=== PATIENT | male | born 1975 | race Caucasian/White ===

== ENCOUNTER 2022-03-19 09:12 | Emergency (ER) | payer OTHER ==
[2022-03-19] MEDS ORDERED: CLONIDINE 0.1 MG TABLET PO ONE (09:46)
[2022-03-19] MEDS ORDERED: NORVASC 5 MG PO ONE (09:47)
[2022-03-19] MEDS ORDERED: CLONIDINE 0.1 MG TABLET ONE (09:51)
[2022-03-19] MEDS ORDERED: NORVASC 5 MG ONE (09:51)
[2022-03-19] MEDS ORDERED: SUBLIMAZE 100 MCG/2 ML ONE (09:51)
[2022-03-19] MEDS: SUBLIMAZE 100 MCG/2 ML IV ONE ×2 (09:55→17:06)
[2022-03-19 09:58] LABS: Absolute Neutrophil Ct (ANC) 3.25 x10^3/uL (1.4-6.9); Basophil (Absolute #) 0.02 x10^3/uL (0-0.4); Eosinophil % 3.4 % (0.00-5.0); Eosinophil (Absolute #) 0.19 x10^3/uL (0-0.5); Hematocrit 46.1 % (42-50); Hemoglobin 15.4 g/dL (12.5-18.0); Lymphocytes % 28.8 % (24.0-44.0); Mean Corpuscular Hemoglobin 29.7 pg (26-32); Mean Corpuscular Hgb Concent. 33.4 g/dL (32-36); Mean Platelet Volume 11.4 fL (7.5-11.0); Monocyte (Absolute #) 0.48 x10^3/uL (0.0-1.3); Monocytes % 8.6 % (0.0-12.0); Neutrophil % 58.4 % (36.0-66.0); Platelet Count 171 x10^3/uL (150-450); Red Blood Count 5.18 x10^6/uL (4.1-5.6); Red Cell Distribution Width 13.1 % (11.5-14.0); White Blood Count 5.6 x10^3/uL (4.0-10.5)
[2022-03-19 10:04] LABS: Appearance CLEAR (CLEAR); Bilirubin NEGATIVE (NEGATIVE); Glucose >=1000 mg/dL (NEGATIVE); Ketones NEGATIVE (NEGATIVE); Protein,Urine Dip NEGATIVE (Negative); RBC NEGATIVE Ery/ul (0-5)
[2022-03-19 10:05] LABS: Dipstick done @ ? MAIN LAB; Nitrite NEGATIVE (NEGATIVE); Urobilinogen 0.2 mg/dL (0-1)
[2022-03-19 10:10] LABS: ALBUMIN 4.3 g/dL (3.5-5.0); ALKALINE PHOSPHATASE 104 U/L (38-126); ANION GAP 15.1 MEQ/L (5-15); BLOOD UREA NITROGEN 17 mg/dL (9-20); CHLORIDE 101 mmol/L (98-107); Calcium 8.9 mg/dL (8.4-10.2); Carbon Dioxide 22 mmol/L (22-30); Creatinine 1 0.73 mg/dL (0.66-1.25); EST GLOMERULAR FILTRATION RATE > 60.0 ML/MIN; Glucose 270 mg/dL (74-106); Potassium 4.8 mmol/L (3.5-5.1); SGOT/AST 33 U/L (17-59); SGPT/ALT 30 U/L (0-50); SODIUM 134 mmol/L (137-145); Total Protein 7.7 g/dL (6.3-8.2)
[2022-03-19 10:17] LABS: Mucus SLIGHT /HPF (NEGATIVE); RBC 0-2 /HPF (0-2)
[2022-03-19 10:20] LABS: Urine Cultured Indicated? NO
--- NOTE | 2022-03-19 10:32 | ERPHSYRPT ---
- History of Present Illness Time Seen by Provider: 03/19/22 09:30 Source: patient Exam Limitations: no limitations Patient Subjective Stated Complaint: Hypertension Triage Nursing Assessment: Patient ambulated back to ED and transferred self to bed. Patient A+O X 3. Patient's skin pink, warm and dry. Patient complains of not feeling well for the past two days. Patient complains of occasional headache, dizziness and seeing spots. Patient took his blood pressure yesterday and today and the readings were high. Patient currently denies pain or d iscomfort. Physician History: Patient is a 46-year-old male who presents with a complaint of episodes of dizziness and headache and floaters in his vision. The headache has been on and off for 3 days and is sharp at times. He was previously treated until a year ago with lisinopril for high blood pressure but he did went on a keto diet and lost weight and for some time his blood pressures have been fairly normal. Last night he had blood pressures in the range of 1 66-1 78 systolic and 100-1 19 diastolic. 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 Timing/Duration: day(s) (3) Quality: sharpness, stabbing Head Pain Location: frontal Severity of Pain-Max: severe Severity of Pain-Current: none Recent Head Trauma: no recent headache/trauma Associated Symptoms: dizziness, light-headedness, vision changes (Increased floaters) Previous symptoms: no prior history Allergies/Adverse Reactions: No Known Drug Allergies Allergy (Verified 03/19/22 09:20) Hx Tetanus, Diphtheria Vaccination/Date Given: Yes Hx Influenza Vaccination/Date Given: No Hx Pneumococcal Vaccination/Date Given: No Immunizations Up to Date: Yes Travel Risk - International Travel Have you traveled outside of the country in past 3 weeks: No - Coronavirus Screening Are you exhibiting any of the following symptoms?: No Close contact with a COVID-19 positive Pt in past 14-21 Days: No - Vaccine Status Have you recieved a Covid-19 vaccination: Yes Contact Center Team Lead: Moderna - Vaccination Dates Date of 2cond Vaccination (if applicable): na - Review of Systems Constitutional: No Fever, No Chills Eyes: Vision Changes (Increased floaters intermittently) Ears, Nose, & Throat: No Symptoms Respiratory: No Cough, No Dyspnea Cardiac: No Chest Pain, No Edema, No Syncope Abdominal/Gastrointestinal: No Abdominal Pain, No Nausea, No Vomiting, No Diarrhea Genitourinary Symptoms: No Dysuria Musculoskeletal: No Back Pain, No Neck Pain Skin: No Rash Neurological: Headache, No Dizziness, No Focal Weakness, No Sensory Changes Psychological: No Symptoms Endocrine: No Symptoms All Other Systems: Reviewed and Negative - Past Medical History Pertinent Past Medical History: Yes Neurological History: No Pertinent History ENT History: No Pertinent History Cardiac History: No Pertinent History Respiratory History: No Pertinent History Endocrine Medical History: No Pertinent History Musculoskeletal History: No Pertinent History GI Medical History: No Pertinent History History: No Pertinent History Psycho-Social History: No Pertinent History Male Reproductive Disorders: No Pertinent History Other Medical History: states january 2013 in hospital for cellulitis - Past Surgical History Past Surgical History: Yes Neuro Surgical History: No Pertinent History Cardiac: No Pertinent History Respiratory: No Pertinent History Gastrointestinal: No Pertinent History Genitourinary: No Pertinent History Musculoskeletal: Amputation Male Surgical History: No Pertinent History Other Surgical History: 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 - Social History Smoking Status: Never smoker Exposure to second hand smoke: No Drug Use: none Patient Lives Alone: No - Nursing Vital Signs Nursing Vital Signs: Initial Vital Signs Temperature 97.2 F 03/19/22 09:21 Pulse Rate 77 03/19/22 09:21 Respiratory Rate 18 03/19/22 09:21 Blood Pressure 143/96 03/19/22 09:21 O2 Sat by Pulse Oximetry 98 03/19/22 09:21 Pain Scale Pain Intensity 0 - Physical Exam General Appearance: no apparent distress Eye Exam: PERRL/EOMI, eyes nml inspection, other (Funduscopic exam is negative) Ears, Nose, Throat Exam: normal ENT inspection, moist mucous membranes Neck Exam: normal inspection, supple, full range of motion, No meningismus Respiratory Exam: normal breath sounds, lungs clear Cardiovascular Exam: regular rate/rhythm, normal heart sounds Gastrointestinal/Abdominal Exam: soft, No tenderness, No distention Back Exam: normal inspection, normal range of motion Mental Status Exam: alert, oriented x 3, 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 Exam: normal speech, PERRL, No facial droop Coordination/Gait Exam: normal cerebellar function Motor/Sensory Exam: no motor deficit, no sensory deficit Skin Exam: normal color, warm, dry, No rash SpO2 Interpretation: normal SpO2: 98 O2 Delivery: Room Air - Course EKG Interpreted by Me: RATE (68), Sinus Rhythm, NORMAL AXIS, NORMAL INTERVALS, NORMAL QRS, NORMAL ST-T - Radiology Exams Chest X-ray Interpretation: Negative - CT Exams Head CT Interpretation: Negative Ordered Tests: Active Orders 24 hr Category Date Time Status EKG-ER Only STAT Care 03/19/22 09:46 Active IV Insertion STAT Care 03/19/22 09:44 Active CHEST 1 VIEW (PORTABLE) Stat Exams 03/19/22 10:49 Completed HEAD WITHOUT CONTRAST [CT] Stat Exams 03/19/22 09:44 Completed CBC W DIFF Stat Lab 03/19/22 09:40 Completed CMP Stat Lab 03/19/22 09:40 Completed UA W/RFX CULTURE Stat Lab 03/19/22 09:50 Completed Medication Summary Discontinued Medications Generic Name Dose Route Start Last Admin Trade Name Freq PRN Reason Stop Dose Admin Amlodipine Besylate 5 mg 03/19/22 09:47 03/19/22 09:53 Amlodipine Besylate 5 Mg Tablet PO 03/19/22 09:48 5 mg STAT ONE Administration Amlodipine Besylate Confirm 03/19/22 09:51 Amlodipine Besylate 5 Mg Tablet Administered 03/19/22 09:52 Dose 5 mg .ROUTE .STK-MED ONE Clonidine 0.1 mg 03/19/22 09:46 03/19/22 09:54 Clonidine Hcl 0.1 Mg Tablet PO 03/19/22 09:47 0.1 mg STAT ONE Administration Clonidine Confirm 03/19/22 09:51 Clonidine Hcl 0.1 Mg Tablet Administered 03/19/22 09:52 Dose 0.1 mg .ROUTE .STK-MED ONE Fentanyl Citrate 50 mcg 03/19/22 09:44 03/19/22 09:55 Fentanyl Citrate 100 Mcg/2 Ml* Vial IV 03/19/22 09:45 50 mcg STAT ONE Administration Fentanyl Citrate Confirm 03/19/22 09:51 Fentanyl Citrate 100 Mcg/2 Ml* Vial Administered 03/19/22 09:52 Dose 100 mcg .ROUTE .STK-MED ONE Lab/Rad Data: Laboratory Result Diagrams 03/19/22 09:40 03/19/22 09:40 Laboratory Results 08/05/22 08/05/22 08/05/22 Range/Units 09:50 09:40 09:40 WBC 5.6 (4.0-10.5) x10^3/uL RBC 5.18 (4.1-5.6) x10^6/uL Hgb 15.4 (12.5-18.0) g/dL Hct 46.1 (42-50) % MCV 89.0 (78-100) fL MCH 29.7 (26-32) pg MCHC 33.4 (32-36) g/dL RDW 13.1 (11.5-14.0) % Plt Count 171 (150-450) x10^3/uL MPV 11.4 H (7.5-11.0) fL Gran % 58.4 (36.0-66.0) % Immature Gran % (Auto) 0.4 (0.00-0.4) % Nucleat RBC Rel Count 0.0 (0.00-0.1) % Eos # (Auto) 0.19 (0-0.5) x10^3/uL Immature Gran # (Auto) 0.02 (0.00-0.03) x10^3u/L Absolute Lymphs (auto) 1.60 (1.0-4.6) x10^3/uL Absolute Monos (auto) 0.48 (0.0-1.3) x10^3/uL Absolute Nucleated RBC 0.00 (0.00-0.01) x10^3u/L Lymphocytes % 28.8 (24.0-44.0) % Monocytes % 8.6 (0.0-12.0) % Eosinophils % 3.4 (0.00-5.0) % Basophils % 0.4 (0.0-0.4) % Absolute Granulocytes 3.25 (1.4-6.9) x10^3/uL Basophils # 0.02 (0-0.4) x10^3/uL Sodium 134 L (137-145) mmol/L Potassium 4.8 (3.5-5.1) mmol/L Chloride 101 (98-107) mmol/L Carbon Dioxide 22 (22-30) mmol/L Anion Gap 15.1 H (5-15) MEQ/L BUN 17 (9-20) mg/dL Creatinine 0.73 (0.66-1.25) mg/dL Estimated GFR > 60.0 ML/MIN Glucose 270 H (74-106) mg/dL Calcium 8.9 (8.4-10.2) mg/dL Total Bilirubin 1.00 (0.2-1.3) mg/dL AST 33 (17-59) U/L ALT 30 (0-50) U/L Alkaline Phosphatase 104 (38-126) U/L Serum Total Protein 7.7 (6.3-8.2) g/dL Albumin 4.3 (3.5-5.0) g/dL Urinalys Dipstick Clnc MAIN LAB Urine Color YELLOW (YELLOW) Urine Appearance CLEAR (CLEAR) Urine pH 5.0 (5-6) Ur Specific [place] 1.030 (1.005-1.025) POC Urine Protein Conf NEGATIVE (Negative) Urine Ketones NEGATIVE (NEGATIVE) Urine Nitrite NEGATIVE (NEGATIVE) Urine Bilirubin NEGATIVE (NEGATIVE) Urine Urobilinogen 0.2 (0-1) mg/dL Urine Leukocytes NEGATIVE (NEGATIVE) Urine WBC (Auto) NONE (0-5) /HPF Urine RBC (Auto) 0-2 (0-2) /HPF U Epithel Cells (Auto) NONE (FEW) /HPF Urine Bacteria (Auto) NONE (NEGATIVE) /HPF Urine RBC NEGATIVE (0-5) Bakari/ul Urine Mucus (Auto) SLIGHT (NEGATIVE) /HPF Ur Culture Indicated? NO Urine Glucose >=1000 (NEGATIVE) mg/dL - Progress Progress: improved Air Movement: good Blood Culture(s) Obtained: No Antibiotics given: No - Departure Departure Disposition: Home Clinical Impression: Hypertension, Diabetes mellitus, type II Condition: Stable Critical Care Time: No Referrals: JHONATAN LASSITER MD [Primary Care Provider] - Follow up/PCP as directed Instructions: Malignant Hypertension (DC), Type 2 Diabetes (DC) Prescriptions: Metformin HCl 500 mg [Glucophage 500 MG] 500 mg PO BID 30 Days #60 tablet Lisinopril 10 mg [Zestril 10 MG] 10 mg PO DAILY 30 Days #30 tablet
--- NOTE | 2022-03-19 11:30 | XRAY ---
Exam: AP upright portable chest film from 03/19/2022. Comparison: Upright PA chest film from 05/29/2019. Indication: Headache; dizziness 2-3 days; hypertension. Findings: The film was obtained in a mildly lordotic projection. The heart size appears within normal limits for this AP portable technique. The claude and mediastinal structures appear unremarkable. Lungs are well inflated and appear clear. Pulmonary vascularity is normal. No pneumothorax or pleural fluid is seen. Lateral osteophyte formation is seen within the lower thoracic spine. No acute osseous process is seen. Impression: 1. No acute cardiopulmonary disease is seen, no change from 05/29/2019.
--- NOTE | 2022-03-19 11:36 | XRAY ---
Exam: CT of the head without IV contrast from 03/19/2022. CTDI: 53.92 mGy Comparison: None. Indication: 46-year-old male with headache; dizziness for 2-3 days; hypertension. Technique: Noncontrast axial images are obtained through the brain. Reconstructed coronal and sagittal images were created and reviewed. Findings: The ventricles appear of normal size and configuration. No focal mass effect or midline shift is seen. Some artifactual streaking is seen within the mouth due to dental amalgam. No acute intracranial bleed or abnormal extra-axial fluid collection is seen. The sanchez matter-white matter interfaces appear normal. No low attenuation ischemic infarct is seen. The cortical sulci appear unremarkable. The paranasal sinuses are clear without air-fluid levels.. The mastoid air cells appear clear without effusion. The middle ear cavities appear grossly unremarkable. The orbits appear grossly unremarkable. There is some soft tissue density within the right external auditory canal which may represent cerumen. A minimal amount of soft tissue density is seen within the left external auditory canal as well, likely representing cerumen. The calvarium of the skull appears intact. Impression: 1. No acute intracranial bleed or other acute intracranial process is seen. 2. There is some soft tissue density seen within both external auditory canals, right greater than left. This likely represents cerumen. Correlate clinically.
[2022-03-19 12:08] VITALS: BP 109/85; PULSE 76; O2SAT 96
== END 2022-03-19 12:14 | disposition home or self-care (01) ==
LOC: ED 09:12
DX: I10 Essential (primary) hypertension (principal); E11.65 Type 2 diabetes mellitus with hyperglycemia; R51.9 Headache, unspecified; R42 Dizziness and giddiness; H53.8 Other visual disturbances
CPT/HCPCS: 36000; 36415; 70450; 71045; 80053; 81015; 85025; 93005; 96374; 96375; 99284; J3010; A9270-GY

== ENCOUNTER 2024-02-22 17:18 | Emergency (ER) | payer OTHER ==
[2024-02-22 17:38] VITALS: TEMP 97.2
[2024-02-22 18:26] LABS: Absolute Neutrophil Ct (ANC) 4.62 x10^3/uL (1.78-5.38); BASOPHIL % 0.3 % (0.2-1.2); Basophil (Absolute #) 0.02 x10^3/uL (0.01-0.08); Eosinophil % 2.8 % (0.8-7.0); Hematocrit 42.5 % (40.1-51.0); Hemoglobin 14.6 g/dL (13.7-17.5); IMMATURE GRAN # 0.02 x10^3u/L (0.001-0.031); IMMATURE GRAN % 0.3 % (0.001-0.429); Lymphocyte (Absolute #) 1.63 x10^3/uL (1.32-3.57); Lymphocytes % 23.2 % (21.8-53.1); Mean Cell Volume 87.6 fL (79.0-92.2); Mean Corpuscular Hemoglobin 30.1 pg (25.7-32.2); Mean Corpuscular Hgb Concent. 34.4 g/dL (32.3-36.5); Mean Platelet Volume 11.1 fL (9.4-12.4); Monocyte (Absolute #) 0.53 x10^3/uL (0.30-0.82); Monocytes % 7.5 % (5.3-12.2); Neutrophil % 65.9 % (34.0-67.9); Platelet Count 179 x10^3/uL (163-337); Red Blood Count 4.85 x10^6/uL (4.63-6.08); Red Cell Distribution Width 13.1 % (11.6-14.4)
[2024-02-22 18:42] LABS: ANION GAP 13.5 MEQ/L (5-15); Calcium 9.2 mg/dL (8.4-10.2); Creatinine 1 0.7 mg/dL (0.66-1.25); EST GLOMERULAR FILTRATION RATE 112.3 ML/MIN
--- NOTE | 2024-02-22 18:50 | ERPHSYRPT ---
- History of Present Illness Source: patient Exam Limitations: no limitations Patient Subjective Stated Complaint: pt here for pain to left groin area for 2 days now. no injury, he states he has hx of varicose veins issues.and had surgery Triage Nursing Assessment: pt alert, walked in with a limb, resp easy, skin w/d/p. has swelling to left groin area, states pain radiates at times down leg, no difficulty with bowel or bladder Hx Tetanus, Diphtheria Vaccination/Date Given: Yes Hx Influenza Vaccination/Date Given: No Hx Pneumococcal Vaccination/Date Given: No Immunizations Up to Date: Yes - History of Present Illness Time Seen by Provider: 02/22/24 17:36 Physician History: Patient here with left upper thigh pain. Patient has a history of varicose veins, some type of clotting in that area. He is unsure. She states that it has "needed to be stripped before". Approximately 2 days ago he developed sudden onset of pain in that area. No nausea or vomiting. No abdominal pain. No difficulty peeing, no testicle pain. Patient is taking PO well. Same number of urinations and defecations. The patient has no signs of altered mental status, nuchal rigidity, signs of meningitis. The patient is up-to-date on all vaccinations. (GARDENIA KELLEY) Allergies/Adverse Reactions: No Known Drug Allergies Allergy (Verified 02/22/24 17:35) Travel Risk - International Travel Have you traveled outside of the country in past 3 weeks: No - Emerging Infectious Disease Are you exhibiting symptoms associated with any current EIDs: No - Past Medical History Pertinent Past Medical History: Yes Neurological History: No Pertinent History ENT History: No Pertinent History Cardiac History: No Pertinent History Respiratory History: No Pertinent History Endocrine Medical History: No Pertinent History Musculoskeletal History: No Pertinent History GI Medical History: No Pertinent History History: No Pertinent History Psycho-Social History: No Pertinent History Male Reproductive Disorders: No Pertinent History Other Medical History: states january 2013 in hospital for cellulitis - Past Surgical History Past Surgical History: Yes Neuro Surgical History: No Pertinent History Cardiac: No Pertinent History Respiratory: No Pertinent History Gastrointestinal: No Pertinent History Genitourinary: No Pertinent History Musculoskeletal: Amputation Male Surgical History: No Pertinent History Other Surgical History: 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 veins left leg - Social History Smoking Status: Never smoker Exposure to second hand smoke: No Drug Use: none Patient Lives Alone: No - Social Determinants of Health Will the patient participate in the screening: Declined to provide - Physical Exam SpO2: 98 - Nursing Vital Signs Nursing Vital Signs: Initial Vital Signs Temperature 97.2 F 02/22/24 17:37 Pulse Rate 90 02/22/24 17:37 Respiratory Rate 18 02/22/24 17:37 Blood Pressure 139/98 02/22/24 17:37 O2 Sat by Pulse Oximetry 98 02/22/24 17:37 Pain Scale Pain Intensity 7 - Physical Exam Comments: 02/22/24 18:47 Review of Systems Constitutional: Negative for fever. HENT: Negative for congestion. Respiratory: Negative for shortness of breath. Cardiovascular: Negative for chest pain. Gastrointestinal: Negative for abdominal pain. Genitourinary: Negative for dysuria. Musculoskeletal: Negative for back pain. Skin: Negative for rash. Neurological: Negative for headaches. Psychiatric/Behavioral: Negative for behavioral problems. All other systems reviewed and are negative. Physical Exam Vitals signs and nursing note reviewed. Constitutional: Appearance: Patient is well-developed. HENT: Head: Normocephalic and atraumatic. Eyes: Conjunctiva/sclera: Conjunctivae normal. Neck: Musculoskeletal: Normal range of motion. Trachea: No tracheal deviation. Cardiovascular: Rate and Rhythm: Normal rate. Pulmonary: Effort: Pulmonary effort is normal. No respiratory distress. Abdominal: Palpations: Abdomen is soft. Musculoskeletal: General: No deformity. Left groin demonstrates varicose veins, swelling, tenderness. Bulging in that area. No obvious reducible hernia. No obvious deformity, sensation intact, 2+ capillary refill, 2 point tactile discrimination intact. 5 out of 5 strength. Full range of motion without pain. Compartments are soft, nontender. Overlying skin shows no tenting, bruising, ecchymosis. Skin: General: Skin is warm and dry. Neurological/ Psychiatric: Mental Status: Mental status, behavior, interaction with environment is appropriate for patient's age and condition Testicle exam with service representativeVahid. Testicles intact, no signs of bulge, no scrotal abscesses. Groin is intact without obvious hernia. Cremaster reflex intact. Patient is circumcised, no shaft issue. (GARDENIA KELLEY) - Course Nursing assessment & vital signs reviewed: Yes Ordered Tests: Active Orders 24 hr Category Date Time Status IV Insertion STAT Care 02/22/24 18:06 Active ABDOMEN AND PELVIS W CONTRAST [CT] Stat Exams 02/22/24 18:59 Completed BMP Stat Lab 02/22/24 18:15 Completed CBC W DIFF Stat Lab 02/22/24 18:15 Completed D-DIMER QUANTITATIVE Stat Lab 02/22/24 18:15 Completed UA W/RFX UR CULTURE Stat Lab 02/22/24 19:14 Completed Medication Summary Generic Name Dose Route Start Last Admin Trade Name Freq PRN Reason Stop Dose Admin Hydrocodone Bitart/Acetaminophen 4 tablet 02/22/24 23:45 Hydrocodone/Acetamin 10-325 Mg Tablet PO 02/27/24 23:44 Q4H PRN PRN PAIN Ceftriaxone Sodium 1 gm in 100 mls @ 200 mls/hr 02/22/24 23:37 02/22/24 23:40 Rocephin 1 Gm / 100 Ml Nacl IV 02/23/24 00:06 200 mls/hr STAT ONE 200 mls/hr Administration Discontinued Medications Generic Name Dose Route Start Last Admin Trade Name Freq PRN Reason Stop Dose Admin Hydrocodone Bitart/Acetaminophen 4 tab 02/22/24 23:39 Hydrocodone/Apap 5/325 1 Tab Tablet PO 02/27/24 23:38 Q4H PRN PRN PAIN Hydrocodone Bitart/Acetaminophen Confirm 02/22/24 23:45 Hydrocodone/Acetamin 10-325 Mg Tablet Administered 02/22/24 23:46 Dose 4 tablet .ROUTE .STK-MED ONE Hydromorphone HCl 1 mg 02/22/24 18:54 02/22/24 19:04 Hydromorphone 1 Mg/1ml Inj IV 02/22/24 18:55 1 mg STAT ONE Administration Hydromorphone HCl Confirm 02/22/24 18:59 Hydromorphone 1 Mg/1ml Inj Administered 02/22/24 19:00 Dose 1 mg .ROUTE .STK-MED ONE Hydromorphone HCl 0.5 mg 02/22/24 23:07 02/22/24 23:11 Hydromorphone 1 Mg/1ml Inj IV 02/22/24 23:08 0.5 mg STAT ONE Administration Hydromorphone HCl Confirm 02/22/24 23:10 Hydromorphone 1 Mg/1ml Inj Administered 02/22/24 23:11 Dose 1 mg .ROUTE .STK-MED ONE Ceftriaxone Sodium Confirm 02/22/24 23:40 Rocephin 1 Gm / 100 Ml Nacl Administered 02/22/24 23:41 Dose 1 gm in 100 mls @ ud IV .STK-MED ONE Ketorolac Tromethamine 30 mg 02/22/24 18:54 02/22/24 19:01 Ketorolac Tromethamine 30 Mg/Ml Inj IV 02/22/24 18:55 30 mg STAT ONE Administration Ketorolac Tromethamine Confirm 02/22/24 18:58 Ketorolac Tromethamine 30 Mg/Ml Inj Administered 02/22/24 18:59 Dose 30 mg .ROUTE .STK-MED ONE Ondansetron HCl 4 mg 02/22/24 18:54 02/22/24 19:00 Ondansetron Hcl 4 Mg/2 Ml Vial IV 02/22/24 18:55 4 mg STAT ONE Administration Ondansetron HCl Confirm 02/22/24 18:58 Ondansetron Hcl 4 Mg/2 Ml Vial Administered 02/22/24 18:59 Dose 4 mg .ROUTE .STK-MED ONE Lab/Rad Data: Laboratory Result Diagrams 02/22/24 18:15 02/22/24 18:15 Laboratory Results 02/22/24 02/22/24 02/22/24 Range/Units 19:14 18:15 18:15 WBC (4.23-9.07) x10^3/uL RBC (4.63-6.08) x10^6/uL Hgb (13.7-17.5) g/dL Hct (40.1-51.0) % MCV (79.0-92.2) fL MCH (25.7-32.2) pg MCHC (32.3-36.5) g/dL RDW (11.6-14.4) % Plt Count (163-337) x10^3/uL MPV (9.4-12.4) fL Gran % (34.0-67.9) % Immature Gran % (Auto) (0.001-0.429) % Nucleat RBC Rel Count (0.00-0.2) % Eos # (Auto) (0.04-0.54) x10^3/uL Immature Gran # (Auto) (0.001-0.031) x10^3u/L Absolute Lymphs (auto) (1.32-3.57) x10^3/uL Absolute Monos (auto) (0.30-0.82) x10^3/uL Absolute Nucleated RBC (0.00-0.012) x10^3u/L Lymphocytes % (21.8-53.1) % Monocytes % (5.3-12.2) % Eosinophils % (0.8-7.0) % Basophils % (0.2-1.2) % Absolute Granulocytes (1.78-5.38) x10^3/uL Basophils # (0.01-0.08) x10^3/uL D-Dimer 0.22 (0.0-0.50) mg/L Sodium 137 (135-145) mmol/L Potassium 4.0 (3.5-5.1) mmol/L Chloride 101 (98-107) mmol/L Carbon Dioxide 26 (22-30) mmol/L Anion Gap 13.5 (5-15) MEQ/L BUN 16 (9-20) mg/dL Creatinine 0.70 (0.66-1.25) mg/dL Estimated GFR 112.3 ML/MIN Glucose 204 H (74-106) mg/dL Calcium 9.2 (8.4-10.2) mg/dL Urine Color Yellow (Yellow) Urine Appearance Clear (Clear) Urine pH 5.5 (4.6-8.0) Ur Specific [place] >=1.030 A (1.005-1.030) Urine Protein Negative (Negative) Urine Glucose (UA) >=1000 A (Negative) mg/dL Urine Ketones Trace A (Negative) Urine Blood Negative (Negative) Urine Nitrite Negative (Negative) Urine Bilirubin Negative (Negative) Urine Urobilinogen 0.2 (0.2) mg/dL Ur Leukocyte Esterase Negative (Negative) U Hyaline Cast (Auto) NONE SEEN (0-2) /LPF Urine Microscopic RBC 0-2 (0-5) /HPF Urine Microscopic WBC 0-2 (0-5) /HPF Ur Epithelial Cells None Seen (None Seen) /HPF Urine Bacteria None Seen (None Seen) /HPF Urine Culture Reflexed NO (NO) 02/22/24 Range/Units 18:15 WBC 7.0 (4.23-9.07) x10^3/uL RBC 4.85 (4.63-6.08) x10^6/uL Hgb 14.6 (13.7-17.5) g/dL Hct 42.5 (40.1-51.0) % MCV 87.6 (79.0-92.2) fL MCH 30.1 (25.7-32.2) pg MCHC 34.4 (32.3-36.5) g/dL RDW 13.1 (11.6-14.4) % Plt Count 179 (163-337) x10^3/uL MPV 11.1 (9.4-12.4) fL Gran % 65.9 (34.0-67.9) % Immature Gran % (Auto) 0.3 (0.001-0.429) % Nucleat RBC Rel Count 0.0 (0.00-0.2) % Eos # (Auto) 0.20 (0.04-0.54) x10^3/uL Immature Gran # (Auto) 0.02 (0.001-0.031) x10^3u/L Absolute Lymphs (auto) 1.63 (1.32-3.57) x10^3/uL Absolute Monos (auto) 0.53 (0.30-0.82) x10^3/uL Absolute Nucleated RBC 0.00 (0.00-0.012) x10^3u/L Lymphocytes % 23.2 (21.8-53.1) % Monocytes % 7.5 (5.3-12.2) % Eosinophils % 2.8 (0.8-7.0) % Basophils % 0.3 (0.2-1.2) % Absolute Granulocytes 4.62 (1.78-5.38) x10^3/uL Basophils # 0.02 (0.01-0.08) x10^3/uL D-Dimer (0.0-0.50) mg/L Sodium (135-145) mmol/L Potassium (3.5-5.1) mmol/L Chloride (98-107) mmol/L Carbon Dioxide (22-30) mmol/L Anion Gap (5-15) MEQ/L BUN (9-20) mg/dL Creatinine (0.66-1.25) mg/dL Estimated GFR ML/MIN Glucose (74-106) mg/dL Calcium (8.4-10.2) mg/dL Urine Color (Yellow) Urine Appearance (Clear) Urine pH (4.6-8.0) Ur Specific [place] (1.005-1.030) Urine Protein (Negative) Urine Glucose (UA) (Negative) mg/dL Urine Ketones (Negative) Urine Blood (Negative) Urine Nitrite (Negative) Urine Bilirubin (Negative) Urine Urobilinogen (0.2) mg/dL Ur Leukocyte Esterase (Negative) U Hyaline Cast (Auto) (0-2) /LPF Urine Microscopic RBC (0-5) /HPF Urine Microscopic WBC (0-5) /HPF Ur Epithelial Cells (None Seen) /HPF Urine Bacteria (None Seen) /HPF Urine Culture Reflexed (NO) - Progress Progress: improved Counseled pt/family regarding: lab results, diagnosis, need for follow-up - Progress Progress Note: 02/22/24 18:49 Differential diagnosis includes blood clot, varicose veins, hernia, deep space infection, UTI. Plan for IV, basic labs, D-dimer, UA. If D-dimer returns positive we will obtain an ultrasound of that area. Handoff of care to Dr. Reis at 7 PM. He will follow-up on all labs and images. Disposition per reexam, labs, imaging. (GARDENIA KELLEY) Patient endorsed to Dr. Reis at approximately 7 PM. However D-dimer resulted as negative prior to my shift. CT scan ordered per Dr. Kelley. CT scan reveals diverticulosis a left varicocele left inguinal lymphadenopathy and splenomegaly. Patient requires ultrasound to further evaluate left inguinal lymphadenopathy and varicocele. Ultrasound ordered. Ultrasound will be done on Tuesday. Results to be sent to Dr. Dwyer. Additionally workup reveals glucosuria and hyperglycemia. Patient likely developing early diabetes. On further exam we observed that patient has a excoriated area on his left medial thigh adjacent to the area of the inguinal lymphadenopathy. There appears to be early cellulitis. Patient received a dose of Rocephin. A prescription for Keflex forwarded to patient's pharmacy. Additionally patient was discharged home with 4 pills of Pinewood 10. We attempted to send a prescription for Pinewood to patient's pharmacy however there are technical difficulties at this time that are precluding us from forwarding a Pinewood prescription. Plan of care discussed with patient. He agrees to have his ultrasound done this coming Tuesday as planned. He will follow-up with Dr. Dwyer as well. Patient will take his antibiotics and pain medication as prescribed. at bedside. They voiced no other complaints or concerns at this time. Portions of this note were created with voice recognition technology. There may be grammatical, spelling, punctuation or sound alike errors Complexity problem addressed is moderate acute complicated. No critical care time. Complex of data reviewed and analyzed is extensive. Test ordered test reviewed results analyzed and correlated clinically with history and physical exam. Risk of complication and or risk of morbidity/mortality patient management is moderate. A prescription for Keflex forwarded to patient's pharmacy. Patient received Dilaudid for pain control in our ED. Vital stable. Time spent to discharge patient approximately 20 minutes. Plan of care estab lished for shared decision making. No social determinants of health present impede follow-up. Portions of this note were created with voice recognition technology. There may be grammatical, spelling, punctuation or sound alike errors 02/22/24 23:48 (JANE REIS) - Departure Critical Care Time: No - Departure Clinical Impression: Left leg pain, Hyperglycemia, Glucosuria, Inguinal lymphadenopathy, Left varicocele, Splenomegaly, Inguinal pain, Cellulitis Condition: Stable Referrals: JHONATAN DWYER MD [Primary Care Provider] - Follow up/PCP as directed Additional Instructions: Discharge/Care Plan JIESHERRIE CHANDLER was seen on 02/22/24 in the Emergency Room. The patient w as counseled regarding Diagnosis,Lab results, Imaging studies, need for follow up and when to return to the Emergency Room. Prescriptions given: Discharge Note I have spoken with the patient and/or caregivers. I have explained the patient's condition, diagnosis and treatment plan based on the information available to me at this time. I have answered the patient's and/or caregiver's questions and addressed any concerns. The patient and/or caregivers have as good understanding of the patient's diagnosis, condition and treatment plan as can be expected at this point. The vital signs have been stable. The patient's condition is stable and appropriate for discharge from the emergency department. The patient will pursue further outpatient evaluation with the primary care physician or other designated or consulting physician as outlined in the discharge instructions. The patient and/or caregivers are agreeable to this plan of care and follow-up instructions have been explained in detail. The patient and/or caregivers have received these instruction. The patient/and or caregivers are aware that any significant change in condition or worsening of symptoms should prompt an immediate return to this or the closest emergency department or call 911. Prescriptions: Hydrocodone/APAP 5/325 [[place] 5/325 mg] 1 each PO Q6H PRN PRN #10 tablet MDD 4 PRN Reason: Pain Cephalexin Mh 500 mg [Keflex 500 mg] 500 mg PO TID #21 cap
[2024-02-22] MEDS ORDERED: Zofran 4 MG/2 ML VIAL ONE (18:58)
[2024-02-22] MEDS ORDERED: TORAdol 30 mg Injection ONE (18:58)
[2024-02-22] MEDS ORDERED: Hydromorphone 1 mg/ml Injection ONE ×2 (18:59→23:10)
[2024-02-22] MEDS: Zofran 4 MG/2 ML VIAL IV ONE (19:00)
[2024-02-22] MEDS: TORAdol 30 mg Injection IV ONE (19:01)
[2024-02-22] MEDS: Hydromorphone 1 mg/ml Injection IV ONE ×2 (19:04→23:11)
[2024-02-22 19:23] LABS: Appearance Clear (Clear); Bacteria None Seen /HPF (None Seen); Bilirubin Negative (Negative); Blood Negative (Negative); Epithelial Cells None Seen /HPF (None Seen); Glucose, Urine >=1000 mg/dL (Negative); Hyaline Casts NONE SEEN /LPF (0-2); Ketones Trace (Negative); Leukocyte Esterase Negative (Negative); Nitrite Negative (Negative); Ph 5.5 (4.6-8.0); Protein,Urine Dip Negative (Negative); RBC 0-2 /HPF (0-5); Specific Gravity >=1.030 (1.005-1.030); Urobilinogen 0.2 mg/dL (0.2); WBC 0-2 /HPF (0-5)
[2024-02-22 19:24] LABS: ADD URINE CULTURE? NO (NO)
--- NOTE | 2024-02-22 23:17 | XRAY ---
CLINICAL HISTORY: left groin pain COMPARISON: None. TECHNIQUE: A CT scan of the abdomen and pelvis was performed with IV contrast 80 cc Isovue 370. Coronal and sagittal reconstructive images were also obtained. One of the following dose reduction techniques were utilized for this exam: Automated exposure control, adjustment of the mA and/or kV according to patient size, use of iterative reconstruction. FINDINGS: Sections of the lower thorax show no significant abnormality. Abdomen: The liver is of average size. No focal or diffuse parenchymal abnormality. The portal vein, intrahepatic biliary radicals and the bile ducts are normal. The gallbladder is distended. There is no evidence of wall thickening/ pericholecystic collection. The spleen is prominent in size, measuring 12.8 cm craniocaudally and shows few tiny calcific granulomas. Pancreatic parenchymal atrophy was noted. Both adrenal glands are unremarkable. The kidneys are normal in size and shape. No calculi or hydronephrosis. The ascending colon, the transverse colon, the descending colon, visualized small bowel loops are unremarkable. The appendix appears unremarkable. Pelvis: The urinary bladder is unremarkable. Mild uncomplicated sigmoid diverticulosis noted. The prostate appears unremarkable. Post postsurgical changes seen in left inguinal region with few subcentimetric inguinal nodes, largest measuring 9 mm in short axis diameter. Multiple serpiginous vascular structures are seen along the medial aspect of both thighs, predominant on left side. Suggestion of varicoceles on left side. The lumbar spine shows mild to moderate degenerative changes. Osteoarthritic changes are identified in bilateral hip joints. IMPRESSION: 1. Post postsurgical changes in the left inguinal region with few subcentimetric inguinal nodes, the largest measuring 9 mm in short axis diameter. 2. Multiple serpiginous vascular structures along the medial aspect of both thighs, predominant on the left side. 3. A suggestion of varicoceles on the left side, recommended Doppler evaluation. 4. Mild uncomplicated sigmoid diverticulosis. 5. Mild splenomegaly with old calcified granulomas. Electronically Signed by: Grace Lira MD. (02/22/2024 23:13:27 EDT)
[2024-02-22] MEDS ORDERED: NORCO 5/325 MG PO PRN (23:39)
[2024-02-22] MEDS: ROCEPHIN 1 GM / 100 ML NaCl 1 GM/100 ML IVPB IV ONE (23:40)
[2024-02-22] MEDS ORDERED: ROCEPHIN 1 GM / 100 ML NaCl 1 GM/100 ML IVPB IV ONE (23:40)
[2024-02-22] MEDS ORDERED: NORCO 10-325 MG ONE (23:45)
[2024-02-22] MEDS: NORCO 10-325 MG PO PRN (23:50)
[2024-02-23 00:04] VITALS: BP 131/84; PULSE 75; RESP 16; O2SAT 94
== END 2024-02-23 00:03 | disposition home or self-care (01) ==
LOC: ED 17:18
DX: L03.116 Cellulitis of left lower limb (principal); M79.652 Pain in left thigh; R73.9 Hyperglycemia, unspecified; R81 Glycosuria; R59.0 Localized enlarged lymph nodes; I86.1 Scrotal varices; R16.1 Splenomegaly, not elsewhere classified; R10.2 Pelvic and perineal pain; Z79.891 Long term (current) use of opiate analgesic
CPT/HCPCS: 36000; 36415; 74177; 80048; 81001; 85025; 85379; 96365; 96374; 96375; 96376; 99284; J0696; J1170; J1885; J2405; A9270-GY